=== PATIENT | female | born 1995 | race African-American/Black ===

== ENCOUNTER 2018-02-19 22:59 | Emergency (ER) | payer SELFPAY ==
[~2018-02-19] VITALS: Ht 160 cm; Wt 110.0 kg
[~2018-02-19 22:59] MED LIST: IBUP800T23 PO; METH750T2 PO
[2018-02-19 23:03] VITALS: BP 138/63; PULSE 92; RESP 18; TEMP 98.1; O2SAT 100
--- NOTE | 2018-02-20 00:45 | PD ---
HPI Chief Complaint: Pain: Acute or Chronic Time Seen by Provider: 00:30 Travel History International Travel<30 days: No Contact w/Intl Traveler<30days: No Traveled to known affect area: No History of Present Illness HPI 23-year-old black female presents emergency department with complaints of lower back pain. Patient states that she has had a history of back pain in the past. This is been exacerbated this past week by a new job that she has been working. She states the pain is worse when she bends and moves. There is no alleviating factors. She denies any direct trauma. No numbness, tingling or weakness. No abdominal pain. No nausea vomiting. No dysuria, frequency or hematuria. Symptoms are mild. History Past Medical Histgory Medical History: Denies Significant Hx Tetanus Vaccination: < 5 Years ?: Not Menopausal: No Hx Chemotherapy: No Past Surgical History Surgical History: No Previous Surgery Social History Alcohol Use: No Tobacco Use: No Allergies-Medications (Allergen,Severity, Reaction): Coded Allergies: No Known Allergies (Unverified Adverse Reaction, Unknown, 02/19/18) Reported Meds & Prescriptions Reported Meds & Active Scripts Active No Active Prescriptions or Reported Medications Review of Systems Except as stated in HPI: all other systems reviewed are Neg Physical Exam Narrative GENERAL: This is a well-nourished, well-developed patient, in no apparent distress. SKIN: No rashes, ecchymoses or lesions. Warm and dry. HEAD: Atraumatic. Normocephalic. EYES: PERRL, EOMI, no discharge or injection. No scleral icterus. EARS: Clear NOSE: Nasal turbinates appear normal. THROAT: Mucosa pink and moist. Airway patent. NECK: Trachea midline. supple, moves head freely. LUNGS: Clear to auscultation. CV: Regular in rhythm. ABDOMEN: Soft nontender. Obese. EXT: No clubbing cyanosis or edema. Back: No central bony tenderness to palpation of the dorsal lumbar spine. Patient complains of bilateral paraspinal tenderness. She is able to heel and toe stand. Bends forward to 90. No saddle anesthesia. She has intact sensation with good distal pulses. Normal gait. Appears very comfortable. Sits up in bed at 90. Data Data Last Documented VS Vital Signs Date Time Temp Pulse Resp B/P (MAP) Pulse Ox O2 Delivery O2 Flow Rate FiO2 02/19/18 23:03 98.1 92 18 138/63 (88) 100 MDM Medical Screen Exam Complete: Yes Emergency Medical Condition: No Differential Diagnosis MDM: High Differential diagnoses: Fracture, sprain, strain, HNP, nerve or vascular injury , epidural abscess, pilonidal cyst Narrative Course A medical screening exam was performed: At the time of evaluation the presenting medical condition was determined not to be of an emergent nature. The patient was given the option of receiving additional care, but declined. Patient was given options for additional community resources from which to obtain care. The Patient Has Been advised to seek medical attention for their presenting complaint. The patient has been advised to return to the ER at any time if an emergent condition develops. Primary Impression: Encounter for medical screening examination Scripts No Active Prescriptions or Reported Meds Condition: Ranjith Noriega Feb 20, 2018 00:45
== END 2018-02-20 00:10 | disposition left against medical advice (07) ==
LOC: NEPD 22:59
DX: M54.5 Low back pain (principal)
CPT/HCPCS: 99281